=== PATIENT | female | born 1990 | race Caucasian/White ===

== ENCOUNTER 2020-01-12 12:59 | Outpatient (CLI) | payer MEDICAID ==
--- NOTE | 2020-01-13 16:15 | Consultation ---
DATE OF CONSULTATION: 01/12/2020 CONSULTING PHYSICIAN: Maninder Simmons MD. CHIEF COMPLAINT: Right upper quadrant abdominal pain. HISTORY OF PRESENT ILLNESS: This is a very pleasant 29-year-old female with complaint of right upper quadrant pain since July of 2019. Denies any dysphagia or odynophagia. She complained of some nausea, but no vomiting. No significant weight loss. PAST MEDICAL HISTORY: 1. IBS. 2. Depression. 3. Anxiety. PAST SURGICAL HISTORY: None. MEDICATIONS: Zoloft. FAMILY HISTORY: Father had complained of liver growth. Mother had pancreatic cancer. SOCIAL HISTORY: The patient denies any tobacco, alcohol, or drug abuse. ALLERGIES: No known allergies. REVIEW OF SYSTEMS: Positive for right upper quadrant pain and nausea. PHYSICAL EXAMINATION: GENERAL: A well-developed female, in no acute distress. HEENT: Normocephalic and atraumatic. Sclerae are anicteric. NECK: Supple. No evidence of obvious lymphadenopathy. CARDIOVASCULAR: Regular rate and rhythm. Plus S1-S2. LUNGS: Clear to auscultation bilaterally. ABDOMEN: Positive bowel sounds. Soft. There is minimal tenderness to palpation in the epigastric area. No rebound. No guarding. No peritoneal sign. EXTREMITIES: No cyanosis, no clubbing, no edema. ASSESSMENT AND PLAN: A 29-year-old female with right upper quadrant pain and epigastric abdominal pain. We are going to start a workup with abdominal ultrasound to rule out gallbladder disease or gallstones, or any liver disease given family history of liver problems. Consider adding PPI in next visit if no finding on the abdominal ultrasound and if the patient is still symptomatic. If the above fails, we will consider doing endoscopy. Maninder Simmons M.D. DR: SUZETTE JOB#: [id number] CC:
== END 2020-01-12 14:59 | disposition home or self-care (01) ==
LOC: PAN 12:59
DX: R10.11 Right upper quadrant pain (principal); F32.9 Major depressive disorder, single episode, unspecified; F41.9 Anxiety disorder, unspecified; R11.0 Nausea; R10.13 Epigastric pain; Z80.8 Family history of malignant neoplasm of other organs or systems
CPT/HCPCS: G0463

== ENCOUNTER 2020-03-21 14:44 | Outpatient (CLI) | payer MEDICAID | END 2020-03-21 16:44 | disposition home or self-care (01) | LOC: PAN 14:44 | DX: K58.9 Irritable bowel syndrome, unspecified (principal) | CPT/HCPCS: 99212 ==